=== PATIENT | female | born 1965 | race Two or more races ===

== ENCOUNTER 2018-05-27 09:47 | Outpatient (CLI) | payer OTHER | END 2018-05-27 10:05 | disposition home or self-care (01) | LOC: RAD 501 09:47 | DX: M25.562 Pain in left knee (principal); M79.672 Pain in left foot ==

== ENCOUNTER 2018-12-10 12:07 | Outpatient (CLI) | payer OTHER | END 2018-12-10 12:16 | disposition home or self-care (01) | LOC: SONOGRAMA 12:07 | DX: N60.11 Diffuse cystic mastopathy of right breast (principal); N60.12 Diffuse cystic mastopathy of left breast ==

== ENCOUNTER 2021-12-12 08:44 | Outpatient (CLI) | payer OTHER | END 2021-12-12 08:46 | disposition home or self-care (01) | LOC: SONOGRAMA 08:44 | PROVIDERS: ATTEND Pathology Anatomic Pathology & Clinical Pathology | DX: E04.2 Nontoxic multinodular goiter (principal) ==

== ENCOUNTER 2024-06-13 08:45 | Outpatient (CLI) | payer OTHER | END 2024-06-13 08:48 | disposition home or self-care (01) | LOC: SONOGRAMA 08:45 | PROVIDERS: ATTEND Pathology Anatomic Pathology | DX: D34 Benign neoplasm of thyroid gland (principal); E07.89 Other specified disorders of thyroid; E04.2 Nontoxic multinodular goiter ==